=== PATIENT | female | born 1995 | race Caucasian/White ===

== ENCOUNTER 2016-07-18 23:01 | Emergency (ER) | payer SELFPAY ==
[2016-07-18 23:02] VITALS: BP 119/74; PULSE 89; RESP 20; TEMP 97.8; O2SAT 100
[2016-07-18] MEDS ORDERED: SODIUM CHLOR 0.9% 1000 ML INJ 1,000 ML IV SCH ×2 (23:51)
--- NOTE | 2016-07-18 23:56 | PD ---
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 This is a 20-year-old female who presents for evaluation of hyperglycemia. She reports that she recently traveled to [place] on vacation. She was admitted on July 14 for new onset type 1 diabetes with ketoacidosis. She was discharged yesterday on a home regimen of Lantus subcutaneous 12 units at bedtime as well as Humalog 5 units subcutaneous 3 times a day. She has been using as prescribed. Today she was having some blurred vision and some epigastric discomfort. She checked her blood sugar and it read as "high" and this prompted evaluation. She endorses mild epigastric discomfort, blurred vision as well as polydipsia and polyphagia. Denies any nausea or vomiting, fevers or chills, flank pain, headache. She does not currently have a primary care physician. No other complaints. [facility] Past Medical History Diabetes: Yes Patient Takes Glucophage: No ?: Not Social History Alcohol Use: No Tobacco Use: No Allergies-Medications (Allergen,Severity, Reaction): Coded Allergies: No Known Allergies (Unverified , 07/18/16) Reported Meds & Prescriptions Reported Meds & Active Scripts Active Humalog Kwikpen Pen Inj (Insulin Lispro (Human) Inj) 300 Unit/3 Ml Pen 5 Units SQ TIDAC Lantus Solostar Pen Inj (Insulin Glargine) 300 Unit/3 Ml Pen 12 Units SQ HS Reported Humalog Inj (Insulin Human Lispro) 1,000 Unit/10 Ml Vial 5 Units SQ TIDAC Lantus Inj (Insulin Glargine) 1,000 Unit/10 Ml Vial 12 Units SQ HS Review of Systems Except as stated in HPI: all other systems reviewed are Neg Physical Exam Narrative GENERAL: Pleasant well-developed well-nourished female in no acute distress SKIN: Warm and dry. HEAD: Atraumatic. Normocephalic. EYES: Pupils equal and round. No scleral icterus. No injection or drainage. ENT: No nasal bleeding or discharge. Mucous membranes pink and moist. NECK: Trachea midline. No JVD. CARDIOVASCULAR: Regular rate and rhythm. No murmur appreciated. RESPIRATORY: No accessory muscle use. Clear to auscultation. Breath sounds equal bilaterally. GASTROINTESTINAL: Abdomen soft, mild epigastric tenderness without guarding. No CVA tenderness. MUSCULOSKELETAL: No obvious deformities. No edema. NEUROLOGICAL: Awake and alert. No obvious cranial nerve deficits. Motor grossly within normal limits. Normal speech. PSYCHIATRIC: Appropriate mood and affect; insight and judgment normal. Data Data Last Documented VS Vital Signs Date Time Temp Pulse Resp B/P Pulse Ox O2 Delivery O2 Flow Rate FiO2 07/19/16 03:28 54 16 105/69 99 07/18/16 23:02 97.8 Room Air Orders Complete Blood Count With Diff (07/18/16 23:51) Comprehensive Metabolic Panel (07/18/16 23:51) Lipase (07/18/16 23:51) Urinalysis - C+S If Indicated (07/18/16 23:51) Sodium Chlor 0.9% 1000 Ml Inj (Ns 1000 M (07/18/16 23:51) Ed Urine Pregnancytest Poc (07/18/16 23:51) Iv Access Insert/Monitor (07/18/16 23:51) Sodium Chlor 0.9% 1000 Ml Inj (Ns 1000 M (07/18/16 23:51) Blood Gas Venous (Vbg) (07/18/16 23:52) Beta Hydroxybutyrate (Acetone) (07/18/16 23:30) Insulin Human Regular Inj (Novolin R Inj (07/19/16 00:45) Labs Laboratory Tests Test 07/18/16 07/19/16 07/19/16 23:30 00:20 01:05 White Blood Count 4.5 TH/MM3 Red Blood Count 4.73 MIL/MM3 Hemoglobin 9.7 GM/DL Hematocrit 31.7 % Mean Corpuscular Volume 67.1 FL Mean Corpuscular Hemoglobin 20.5 PG Mean Corpuscular Hemoglobin 30.6 % Concent Red Cell Distribution Width 21.1 % Platelet Count 179 TH/MM3 Mean Platelet Volume 10.0 FL Neutrophils (%) (Auto) 48.5 % Lymphocytes (%) (Auto) 34.9 % Monocytes (%) (Auto) 11.8 % Eosinophils (%) (Auto) 3.7 % Basophils (%) (Auto) 1.1 % Neutrophils # (Auto) 2.2 TH/MM3 Lymphocytes # (Auto) 1.6 TH/MM3 Monocytes # (Auto) 0.5 TH/MM3 Eosinophils # (Auto) 0.2 TH/MM3 Basophils # (Auto) 0.0 TH/MM3 CBC Comment AUTO DIFF Differential Comment AUTO DIFF CONFIRMED Platelet Estimate NORMAL Platelet Morphology Comment NORMAL Acanthocytes OCC Sodium Level 135 MEQ/L Potassium Level 4.2 MEQ/L Chloride Level 95 MEQ/L Carbon Dioxide Level 30.7 MEQ/L Anion Gap 9 MEQ/L Blood Urea Nitrogen 11 MG/DL Creatinine 0.88 MG/DL Estimat Glomerular Filtration 80 ML/MIN Rate Random Glucose 491 MG/DL Calcium Level 9.2 MG/DL Total Bilirubin 0.3 MG/DL Aspartate Amino Transf 46 U/L (AST/SGOT) Alanine Aminotransferase 39 U/L (ALT/SGPT) Alkaline Phosphatase 142 U/L Total Protein 7.0 GM/DL Albumin 3.5 GM/DL Lipase 218 U/L B-Hydroxybutyrate 2.39 MMOL/L Blood Gas Puncture Site LINE Blood Gas Patient Temperature 98.6 Venous Blood pH 7.36 Venous Blood Partial Pressure 49 mmHg CO2 Venous Blood Partial Pressure 20 mmHg O2 Venous Blood HCO3 27 mmol/L Venous Blood Oxygen Saturation 25 % Venous Blood Oxygen Content 3.0 Vol % Venous Blood Base Excess 2.3 mmol/L Blood Gas Inspired Oxygen 21 % Urine Color LIGHT-YELLOW Urine Turbidity CLEAR Urine pH 6.0 Urine Specific [place] 1.033 Urine Protein NEG mg/dL Urine Glucose (UA) 1000 mg/dL Urine Ketones 40 mg/dL Urine Occult Blood MOD Urine Nitrite NEG Urine Bilirubin NEG Urine Urobilinogen LESS THAN 2.0 MG/DL Urine Leukocyte Esterase NEG Urine RBC 46 /hpf Urine WBC 4 /hpf Urine Squamous Epithelial <1 /hpf Cells Urine Mucus FEW /lpf Microscopic Urinalysis Comment CULT NOT INDICATED MDM Medical Decision Making Medical Screen Exam Complete: Yes Emergency Medical Condition: Yes Medical Record Reviewed: Yes Differential Diagnosis Hyperglycemia, dehydration, electrolyte abnormality, DKA Narrative Course 20-year-old female with new onset type 1 diabetes diagnosed on July 14, started insulin regimen, presents now with some epigastric discomfort, hyperglycemia, blurred vision, polydipsia and polyphagia. Blood sugar in triage was 459. Plans for basic lab work, 2 L IV fluid boluses been ordered. Lab work is been reviewed. Hemoglobin is 9.7, microcytic with an MCV of 67.1. PH is 7.36. Glucose is 491. Anion gap is normal. Normal carbon dioxide. Mildly elevated beta hydroxybutyrate at 2.39. Lab work is therefore reassuring. She will be given a 5 unit bolus insulin 0100: At the end of my shift the patient was signed out to have a repeat blood glucose check. Urinalysis is currently pending. Likely the patient will be able to be discharged home. Discussed the importance of outpatient follow-up with the patient. She was given a pamphlet for his [facility] and also discussed attempting a sign up for patient's insistence that she currently does not have insurance. She is agreeable with this plan. Scripts Insulin Lispro (Human) Inj (Humalog Kwikpen Pen Inj)300 Unit/3 Ml Pen5 Units SQ TIDAC #1 PEN Ref 1 Prov:Starr Morrell MD 07/19/16 Insulin Glargine Inj (Lantus Solostar Pen Inj)300 Unit/3 Ml Pen12 Units SQ HS # 1 PEN Ref 1 Prov:Starr Morrell MD 07/19/16 Pritesh Kuo July 18, 2016 23:56
[2016-07-19 00:15] LABS: AUTOMATED NEUTROPHIL # 2.2 TH/MM3 (1.8-7.7); BASOPHIL % 1.1 % (0.0-2.0); EOSINOPHIL # 0.2 TH/MM3 (0-0.4); EOSINOPHIL % 3.7 % (0.0-4.0); HEMATOCRIT 31.7 % (35.0-46.0); LYMPH % 34.9 % (9.0-44.0); LYMPHOCYTE # 1.6 TH/MM3 (1.0-4.8); MEAN CELL VOLUME 67.1 FL (80.0-100.0); MEAN CORPUSCULAR HEMOGLOBIN 20.5 PG (27.0-34.0); MEAN CORPUSCULAR HGB CONC 30.6 % (32.0-36.0); MONO % 11.8 % (0.0-8.0); NEUT % 48.5 % (16.0-70.0); PLATELET COUNT 179 TH/MM3 (150-450); RED BLOOD COUNT 4.73 MIL/MM3 (4.00-5.30); RED CELL DISTRIBUTION WIDTH 21.1 % (11.6-17.2); WHITE BLOOD COUNT 4.5 TH/MM3 (4.0-11.0)
[2016-07-19 00:17] LABS: HEMO FLAGS AUTO DIFF
[2016-07-19 00:31] LABS: ALKALINE PHOSPHATASE 142 U/L (45-117); ALT (GPT) 39 U/L (10-53); ANION GAP 9 MEQ/L (5-15); AST (GOT) 46 U/L (15-37); BETA-HYDROXYBUTYRATE 2.39 MMOL/L (0.00-0.39); BICARBONATE 30.7 MEQ/L (21.0-32.0); BLOOD UREA NITROGEN 11 MG/DL (7-18); CHLORIDE 95 MEQ/L (98-107); GLOMERULAR FILTRATION RATE 80 ML/MIN (>89); POTASSIUM 4.2 MEQ/L (3.5-5.1); SODIUM (NA) 135 MEQ/L (136-145); TOTAL BILIRUBIN ADULT 0.3 MG/DL (0.2-1.0)
[2016-07-19 00:33] LABS: BLOOD GAS VENOUS BASE EXCESS 2.3 mmol/L (-2-2); BLOOD GAS VENOUS HCO3 27 mmol/L (22-26); BLOOD GAS VENOUS O2 HGB SAT 25 % (70-76); BLOOD GAS VENOUS PCO2 49 mmHg (44-48); BLOOD GAS VENOUS PO2 20 mmHg (35-40); BLOOD GAS VENOUS pH 7.36 (7.360-7.400); TEMP CORR TO 98.6
[2016-07-19 00:34] LABS: CRITICAL VALUE YES
[2016-07-19 00:35] LABS: DRAW SITE LINE; FIO2 21 %; STAT YES
[2016-07-19] MEDS ORDERED: INSULIN HUMAN REGULAR 1,000 UNITS/10 ML VIAL IV PUSH ONE (00:45)
--- NOTE | 2016-07-19 01:00 | PD ---
Physical Exam Date Seen by Provider: July 19, 2016 Time Seen by Provider: 00:58 Narrative accepted in transfer of care from Miri Kuo PA-C GENERAL: Well-developed well-nourished female in no acute distress no respiratory distress SKIN: Warm and dry. HEAD: Normocephalic. EYES: No scleral icterus. No injection or drainage. NECK: Supple, trachea midline. No JVD or lymphadenopathy. CARDIOVASCULAR: Regular rate and rhythm without murmurs, gallops, or rubs. RESPIRATORY: Breath sounds equal bilaterally. No accessory muscle use. GASTROINTESTINAL: Abdomen soft, non-tender, nondistended. MUSCULOSKELETAL: No cyanosis, or edema. BACK: Nontender without obvious deformity. No CVA tenderness. Data Data Last Documented VS Vital Signs Date Time Temp Pulse Resp B/P Pulse Ox O2 Delivery O2 Flow Rate FiO2 07/19/16 01:41 81 16 104/64 100 07/18/16 23:02 97.8 Room Air Orders Complete Blood Count With Diff (07/18/16 23:51) Comprehensive Metabolic Panel (07/18/16 23:51) Lipase (07/18/16 23:51) Urinalysis - C+S If Indicated (07/18/16 23:51) Sodium Chlor 0.9% 1000 Ml Inj (Ns 1000 M (07/18/16 23:51) Ed Urine Pregnancytest Poc (07/18/16 23:51) Iv Access Insert/Monitor (07/18/16 23:51) Sodium Chlor 0.9% 1000 Ml Inj (Ns 1000 M (07/18/16 23:51) Blood Gas Venous (Vbg) (07/18/16 23:52) Beta Hydroxybutyrate (Acetone) (07/18/16 23:30) Insulin Human Regular Inj (Novolin R Inj (07/19/16 00:45) Labs Laboratory Tests Test 07/18/16 07/19/16 07/19/16 23:30 00:20 01:05 White Blood Count 4.5 TH/MM3 Red Blood Count 4.73 MIL/MM3 Hemoglobin 9.7 GM/DL Hematocrit 31.7 % Mean Corpuscular Volume 67.1 FL Mean Corpuscular Hemoglobin 20.5 PG Mean Corpuscular Hemoglobin 30.6 % Concent Red Cell Distribution Width 21.1 % Platelet Count 179 TH/MM3 Mean Platelet Volume 10.0 FL Neutrophils (%) (Auto) 48.5 % Lymphocytes (%) (Auto) 34.9 % Monocytes (%) (Auto) 11.8 % Eosinophils (%) (Auto) 3.7 % Basophils (%) (Auto) 1.1 % Neutrophils # (Auto) 2.2 TH/MM3 Lymphocytes # (Auto) 1.6 TH/MM3 Monocytes # (Auto) 0.5 TH/MM3 Eosinophils # (Auto) 0.2 TH/MM3 Basophils # (Auto) 0.0 TH/MM3 CBC Comment AUTO DIFF Differential Comment AUTO DIFF CONFIRMED Platelet Estimate NORMAL Platelet Morphology Comment NORMAL Acanthocytes OCC Sodium Level 135 MEQ/L Potassium Level 4.2 MEQ/L Chloride Level 95 MEQ/L Carbon Dioxide Level 30.7 MEQ/L Anion Gap 9 MEQ/L Blood Urea Nitrogen 11 MG/DL Creatinine 0.88 MG/DL Estimat Glomerular Filtration 80 ML/MIN Rate Random Glucose 491 MG/DL Calcium Level 9.2 MG/DL Total Bilirubin 0.3 MG/DL Aspartate Amino Transf 46 U/L (AST/SGOT) Alanine Aminotransferase 39 U/L (ALT/SGPT) Alkaline Phosphatase 142 U/L Total Protein 7.0 GM/DL Albumin 3.5 GM/DL Lipase 218 U/L B-Hydroxybutyrate 2.39 MMOL/L Blood Gas Puncture Site LINE Blood Gas Patient Temperature 98.6 Venous Blood pH 7.36 Venous Blood Partial Pressure 49 mmHg CO2 Venous Blood Partial Pressure 20 mmHg O2 Venous Blood HCO3 27 mmol/L Venous Blood Oxygen Saturation 25 % Venous Blood Oxygen Content 3.0 Vol % Venous Blood Base Excess 2.3 mmol/L Blood Gas Inspired Oxygen 21 % Urine Color LIGHT-YELLOW Urine Turbidity CLEAR Urine pH 6.0 Urine Specific [place] 1.033 Urine Protein NEG mg/dL Urine Glucose (UA) 1000 mg/dL Urine Ketones 40 mg/dL Urine Occult Blood MOD Urine Nitrite NEG Urine Bilirubin NEG Urine Urobilinogen LESS THAN 2.0 MG/DL Urine Leukocyte Esterase NEG Urine RBC 46 /hpf Urine WBC 4 /hpf Urine Squamous Epithelial <1 /hpf Cells Urine Mucus FEW /lpf Microscopic Urinalysis Comment CULT NOT INDICATED MDM Medical Record Reviewed: Yes Supervised Visit with GORAN: Yes Interpretation(s) CBC is automated differential noted for anemia hemoglobin 9.7 without comparison hemoglobin however patient is otherwise healthy demonstrating female Metabolic panel remarkable for values being grossly normal range except for random glucose of 491 patient has received 2 L of normal saline and regular insulin bolus 5 units IV 1 hour glucose pending at 1:45 AM however bicarbonate is normal anion gap is in normal range and venous pH is normal at 7.36 Patient's beta hydroxy icteric acid is mildly elevated 2.39 however normal bicarbonate and normal pH not consistent with DKA Urinalysis resulted positive for glucose and ketones [id number] hCG is negative Differential Diagnosis Accepted in transfer of care from Miri Kuo PA-C; uncontrolled diabetes, DKA, electrolyte disturbance, dehydration Narrative Course Accepted in transfer of care from Miri Kuo PA-C; patient is new onset diabetic appears to understand prescription medication administration well identified to have elevated blood sugar concern for uncontrolled diabetes DKA L act like disturbance dehydration identified to have hyperglycemia pH is in normal range bicarbonate is found to be in normal range with normal anion gap; patient has received fluid hydration and supplemental regular insulin. Patient without recent febrile illness UTI vomiting diarrhea abdominal pain; plan will be to have patient establish with a primary managing physician and resources provided through [facility]; registration/case management has been informed of patient to expedite financial resources/ insurance resources. 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 Patient has Diagnosis Primary Impression: Hyperglycemia due to type 1 diabetes mellitus Referrals: [facility] 1 day [facility] call for appointment Patient Instructions: Diabetic Hyperglycemia (ED), General Instructions, Managing Diabetes During Sick Days (ED), Type 1 Diabetes in Adults (ED) Additional Instruction: Increase fluid hydration Follow diabetic diet Monitor blood sugars closely Return to the emergency department for any concerns for elevated blood sugars Follow-up with [facility] to establish as primary care provider or with [facility]; recheck in the ED x 1 day if unable to establish with provider in 1 day or before for elevated blood sugars or nausea or vomiting or any concerns Return to the emergency for for any concerns or change in condition No work x 5 days Med/Other Pt SpecificInfo: Prescription(s) given Scripts Insulin Lispro (Human) Inj (Humalog Kwikpen Pen Inj)300 Unit/3 Ml Pen5 Units SQ TIDAC #1 PEN Ref 1 Prov:Starr Morrell MD 07/19/16 Insulin Glargine Inj (Lantus Solostar Pen Inj)300 Unit/3 Ml Pen12 Units SQ HS # 1 PEN Ref 1 Prov:Starr Morrell MD 07/19/16 Disposition: 01 DISCHARGE HOME Condition: Stable Starr Morrell MD July 19, 2016 01:00
[2016-07-19 01:16] LABS: SCAN/DIFF AUTO DIFF CONFIRMED
[2016-07-19 01:17] LABS: ACANTHOCYTES OCC (NORMAL); PLATELET ESTIMATE SMEAR NORMAL (NORMAL); PLATELET MORPHOLOGY NORMAL (NORMAL)
[2016-07-19 01:21] LABS: BLOOD, URINE MOD (NEG); COMMENT (UR) CULT NOT INDICATED; CULTURE IF INDICATED CULT NOT INDICATED; GLUCOSE,URINE 1000 mg/dL (NEG); KETONE, URINE 40 mg/dL (NEG); MUCUS URINE FEW /lpf (OCC); NITRITE,URINE NEG (NEG); SQUAMOUS EPITHELIAL CELL URINE <1 /hpf (0-5); URINE COLOR LIGHT-YELLOW (YELLW/STRAW)
[2016-07-19 01:41] VITALS: BP 104/64; PULSE 81; RESP 16; O2SAT 100
[2016-07-19] MEDS ORDERED: LANTUS2P SQ (03:13)
[2016-07-19] MEDS ORDERED: HUMALOG SQ (03:13)
[2016-07-19] MEDS ORDERED: LANTINJ SQ (03:23)
[2016-07-19] MEDS ORDERED: HUMA100I3 SQ (03:23)
[2016-07-19 03:28] VITALS: BP 105/69
== END 2016-07-19 03:53 | disposition home or self-care (01) ==
LOC: NEPC 23:01
DX: E10.65 Type 1 diabetes mellitus with hyperglycemia (principal); Z79.4 Long term (current) use of insulin
CPT/HCPCS: 80053; 81001; 82010; 82805; 83690; 84703; 85025; 96361; 96374; 99284; J1815; J7030

== ENCOUNTER 2016-12-11 00:03 | Emergency (ER) | payer SELFPAY ==
[~2016-12-11 00:03] MED LIST: HUMA100I3 SQ; HUMALOG SQ; LANTINJ SQ; LANTUS2P SQ
[2016-12-11 00:06] VITALS: BP 128/80; PULSE 99; RESP 16; TEMP 97.9; O2SAT 100
[2016-12-11] MEDS ORDERED: PROPARACAINE HCL 0.5% OPHT SOLN 15 ML BTL EACH EYE ONE (02:15)
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
[2016-12-11] MEDS ORDERED: DICL0.1S RIGHT EYE (02:33)
== END 2016-12-11 02:59 | disposition home or self-care (01) ==
LOC: NEPD 00:03
DX: H20.9 Unspecified iridocyclitis (principal); V47.5XXA Car driver injured in collision with fixed or stationary object in traffic accident, initial encounter
CPT/HCPCS: 99283

== ENCOUNTER 2017-07-09 17:04 | Emergency (ER) | payer OTHER ==
[~2017-07-09] VITALS: Ht 165.1 cm; Wt 62.0 kg
[~2017-07-09 17:04] MED LIST changes: +DICL0.1S RIGHT EYE
[2017-07-09 17:15] VITALS: BP 134/80; PULSE 98; RESP 15; TEMP 99.4; O2SAT 100
[2017-07-09] MEDS ORDERED: SODIUM CHLOR 0.9% 1000 ML INJ 1,000 ML IV ONE (17:25)
[2017-07-09] MEDS ORDERED: SODIUM CHLORIDE 0.9% FLUSH 10 ML FLUSH IVF PRN (17:30)
[2017-07-09] MEDS ORDERED: PROCHLORPERAZINE INJ 10 MG/2 ML VIAL IVP ONE (17:30)
[2017-07-09] MEDS ORDERED: diphenhydrAMINE HCL 50 MG/ML VIAL IVP ONE (17:30)
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
[2017-07-09 17:55] VITALS: O2SAT 99
[2017-07-09 18:15] LABS: BASOPHIL % 0.1 % (0.0-2.0); EOSINOPHIL # 0.1 TH/MM3 (0-0.4); EOSINOPHIL % 2.2 % (0.0-4.0); HEMATOCRIT 36.7 % (35.0-46.0); LYMPH % 26.2 % (9.0-44.0); LYMPHOCYTE # 1.7 TH/MM3 (1.0-4.8); MEAN CELL VOLUME 77.8 FL (80.0-100.0); MEAN CORPUSCULAR HEMOGLOBIN 25.4 PG (27.0-34.0); MEAN CORPUSCULAR HGB CONC 32.7 % (32.0-36.0); MEAN PLATELET VOLUME 10.1 FL (7.0-11.0); MONO % 9.8 % (0.0-8.0); MONOCYTE # 0.6 TH/MM3 (0-0.9); NEUT % 61.7 % (16.0-70.0); PLATELET COUNT 202 TH/MM3 (150-450); RED BLOOD COUNT 4.72 MIL/MM3 (4.00-5.30); RED CELL DISTRIBUTION WIDTH 13.3 % (11.6-17.2); WHITE BLOOD COUNT 6.4 TH/MM3 (4.0-11.0)
[2017-07-09 18:23] LABS: BILIRUBIN, URINE NEG (NEG); BLOOD, URINE NEG (NEG); GLUCOSE,URINE 1000 mg/dL (NEG); KETONE, URINE NEG (NEG); MUCUS URINE FEW /lpf (OCC); NITRITE,URINE NEG (NEG); SQUAMOUS EPITHELIAL CELL URINE 11 /hpf (0-5); URINE COLOR LIGHT-YELLOW (YELLW/STRAW); URINE LEUKOCYTE ESTERASE TRACE (NEG)
[2017-07-09 18:24] VITALS: BP 132/68; PULSE 73; RESP 18; O2SAT 98
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
[2017-07-09 18:32] LABS: BICARBONATE 28.1 MEQ/L (21.0-32.0); CALCIUM 9.2 MG/DL (8.5-10.1); CREATININE 0.45 MG/DL (0.50-1.00)
[2017-07-09] MEDS ORDERED: LOPE-1 PO (18:45)
[2017-07-09] MEDS ORDERED: POTASSIUM CHLORIDE 20 MEQ CONTROLLED RELEASE TAB PO ONE (18:45)
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
[2017-07-09] MEDS ORDERED: NOVO7030P2 SQ (19:21)
== END 2017-07-09 19:27 | disposition home or self-care (01) ==
LOC: NEPE 17:04
DX: R51 Headache (principal); R19.7 Diarrhea, unspecified; E10.9 Type 1 diabetes mellitus without complications; Z79.4 Long term (current) use of insulin
CPT/HCPCS: 70450; 80048; 81001; 84703; 85025; 96361; 96374; 96375; 99284; J0780; J1200; J7030